=== PATIENT | male | born 1955 | race Caucasian/White ===

== ENCOUNTER → 2016-12-29 | Outpatient (CLI) | payer OTHER ==
[~2016-12-29] MED LIST: ACETAMINOPHEN PO; ADVAIR 5001 DISK W/D INH; ALBUTEROL17 GM INH; ALDACTONE PO; ASPIRIN EC81 M1 PO; ASPIRIN81 M2 PO; ATARAX PO; BENZONATATE200 M1 PO; CIPRO PO; COMBIVENT INH14.7 GM INH; COMBIVENT14.7 GM IH; COUMADIN PO; COUMADIN1 MG PO; COUMADIN5 MG PO; COUMADIN6 MG PO; FAMOTIDINE PO; FLONASE 0.05% N16 GM; FLONASE16 GM; FOLIC ACID PO; HCTZ PO; HYDROCODON-ACE1 EAC9 PO; K-DUR20 ME1 PO; KEFLEX PO; LACTULOSE; LACTULOSE10 G/15 M1 PO; LASIX PO; LOPRESSOR PO; LORTAB 2.5/5001 TAB PO; MEDROL PO; MICRO-K10 ME1 PO; MULTI VITAMIN1 EACH PO; MULTIPLE VITAMI1 T11 PO; NITROSTAT0.4 MG SL; OMEPRAZOLE20 M1; OMEPRAZOLE20 M2 PO; OMEPRAZOLE40 M1 PO; PERCOCET 5-3251 TAB PO; POTASSIUM CHLO10 ME1 PO; POTASSIUM CHLO10 MEQ PO; PREDNISONE PO; PROAIR HFA8.5 GM INH; SYMBICORT INH; TRIAMCINOLONE AC1 GM EXT; ULTRAM PO; VENTOLIN HFA; VENTOLIN5 MG/ML; ZOFRAN PO
--- NOTE | ~2016-12-29 | MR32 ---
[facility] A Service of [facility] & [facility] RADIOLOGY TEXT RESULTS PATIENT: AMY HIDALGO LOCATION: [facility] : 57 UNIT #: [id number] AGE: [address]: Dilip Smyth MD SEX: M ORDER DR: [id number] [facility] [address] [place], [place] [address] [id number] MR#: [id number] Acc #: [id number] NAME: AMY HIDALGO : 1955 SEX: M STUDY DATE/TIME: 12/29/2016 13:42 UNIT: [facility] ROOM: STUDY DESCRIPTION: MR Cervical Wo Contrast Attending Physician: Dilip Smyth M.D. Referring Physician: Dilip Smyth M.D. Ordering Physician: Dilip Smyth M.D. Primary Care Physician: Generic Doctor Not In System MRI CENTER REPORT This report is preliminary unless electronic signature is present. EXAM MRI of the cervical spine without contrast dated 12/29/2016 COMPARISON Plain film cervical spine dated 06/10/2014. HISTORY Chronic back pain, right leg pain, neck surgery, headaches. Patient states that he had a neck injury at work in 1999. Numbness in left hand for 6 months. FINDINGS Multisequence, multiplanar imaging of the cervical spine was obtained without contrast. Status post anterior cervical fusion with hardware at C5-6. Degenerative disc disease is seen at multiple levels above and below the level of fusion. Cord demonstrates normal expected course, caliber and signal. Mild bony irregularity is noted in the endplates of T4, worse in the inferior aspect. It appears to be chronic with likely developing Schmorl's node and mild loss of mid vertebral body height. Imaged posterior fossa and craniovertebral junction are unremarkable. Cord is within normal limits. Pre- and paravertebral soft tissues are unremarkable too. C2-3: Disc osteophyte complex with no significant canal stenosis or neural foraminal narrowing. C3-4: Disc osteophyte complex which is slightly prominent in the left subarticular region suspicious for spur/protrusion. Severe left neural foraminal narrowing and borderline size to mild canal stenosis. C4-5: Disc osteophyte complex with borderline size to mild canal stenosis. No neural foraminal narrowing. [facility]. [facility] A Service of [facility] & [facility] RADIOLOGY TEXT RESULTS PATIENT: AMY HIDALGO [facility] : 57 UNIT #: [id number] AGE: [address]: Dilip Smyth MD SEX: M ORDER DR: C5-6: Postoperative change with widely patent canal and neural foramina. C6-7, C7-T1: Mild degenerative disc signal loss without canal stenosis or neural foraminal narrowing. Left C7-T1 facet hypertrophic change. IMPRESSION 1. Status post anterior cervical fusion at C5-6. This level is widely patent without canal stenosis, neural foraminal narrowing, or cord abnormality. 2. Mild degenerative changes are noted at the other levels, slightly worse at C3-4 with disc osteophyte complex and left subarticular small protrusion/spur. There is borderline size to mild canal stenosis and severe left neural foraminal narrowing. 3. Cord is unremarkable. Dictated by... Sai Valentine M.D. THIS IS AN ELECTRONICALLY VERIFIED REPORT Sai Valentine M.D. at 01/03/2017 2:44 PM CPR/aa TD: 12/30/2016 13:23 JOB #: [id number] MRI CENTER REPORT Page 1 of 1 COPY
== END | disposition home or self-care (01) ==
LOC: CMRI 12:56
DX: M47.22 Other spondylosis with radiculopathy, cervical region (principal); M25.552 Pain in left hip; G89.29 Other chronic pain; M48.02 Spinal stenosis, cervical region; Z98.1 Arthrodesis status
CPT/HCPCS: 72141